=== PATIENT | female | born 1995 | race Two or more races ===

== ENCOUNTER → 2019-02-17 | Outpatient (CLI) | payer OTHER | END | disposition home or self-care (01) | LOC: PRENATAL 02-16 09:00 | DX: O44.02 Complete placenta previa NOS or without hemorrhage, second trimester (principal); O02.89 Other abnormal products of conception ==

== ENCOUNTER → 2019-03-18 | Outpatient (CLI) | payer OTHER | END | disposition home or self-care (01) | LOC: PRENATAL 09:00 | DX: O36.8921 Maternal care for other specified fetal problems, second trimester, fetus 1 (principal); O44.02 Complete placenta previa NOS or without hemorrhage, second trimester ==

== ENCOUNTER → 2019-05-25 | Outpatient (CLI) | payer OTHER | END | disposition home or self-care (01) | LOC: PRENATAL 09:00 | DX: O26.841 Uterine size-date discrepancy, first trimester (principal); O28.3 Abnormal ultrasonic finding on antenatal screening of mother; O44.03 Complete placenta previa NOS or without hemorrhage, third trimester; Z34.03 Encounter for supervision of normal first pregnancy, third trimester ==

== ENCOUNTER 2019-07-08 05:57 | Inpatient (IN) | payer OTHER ==
[~2019-07-08] VITALS: Ht 160 cm; Wt 71.2 kg
[2019-07-08] MEDS ORDERED: FOLIC ACID0.8 M1 PO (07:21)
[2019-07-08] MEDS ORDERED: OBSTETRIX DHA1 EACH PO (07:21)
== END 2019-07-10 13:07 | disposition home or self-care (01) | DRG 807 ==
LOC: OB/GYN 05:57 → LDR 05:57 → OB/GYN 23:51
PROVIDERS: ADMIT Obstetrics & Gynecology
PROC: 10E0XZZ Delivery of Products of Conception, External Approach (ICD-10-PCS; principal; 2019-07-08)
PROC: 0HQ9XZZ Repair Perineum Skin, External Approach (ICD-10-PCS; 2019-07-08)
PROC: 3E033VJ Introduction of Other Hormone into Peripheral Vein, Percutaneous Approach (ICD-10-PCS; 2019-07-08)
PROC: 10907ZC Drainage of Amniotic Fluid, Therapeutic from Products of Conception, Via Natural or Artificial Opening (ICD-10-PCS; 2019-07-08)
PROC: 4A1HXCZ Monitoring of Products of Conception, Cardiac Rate, External Approach (ICD-10-PCS; 2019-07-08)
DX: O70.0 First degree perineal laceration during delivery (principal); Z37.0 Single live birth; Z3A.39 39 weeks gestation of pregnancy

== ENCOUNTER 2022-10-10 16:57 | Emergency (ER) | payer OTHER ==
[~2022-10-10] VITALS: Ht 170.2 cm; Wt 54.9 kg
[~2022-10-10 16:57] MED LIST: FOLIC ACID0.8 M1 PO; OBSTETRIX DHA1 EACH PO
== END 2022-10-10 21:36 | disposition home or self-care (01) ==
LOC: ER 16:57
DX: K29.70 Gastritis, unspecified, without bleeding (principal)

== ENCOUNTER 2023-07-11 08:15 | Outpatient (CLI) | payer OTHER | END 2023-07-11 08:20 | disposition home or self-care (01) | LOC: SONOGRAMA 08:15 | PROVIDERS: ATTEND Pathology Anatomic Pathology & Clinical Pathology | DX: E04.1 Nontoxic single thyroid nodule (principal); D34 Benign neoplasm of thyroid gland ==

== ENCOUNTER 2023-09-15 08:55 | Emergency (ER) | payer OTHER ==
[~2023-09-15] VITALS: Ht 162.6 cm; Wt 55.3 kg
[2023-09-15] MEDS ORDERED: CEFTRIAXONE SODIUM 1,000 MG VIAL IM STA (09:21)
[2023-09-15] MEDS ORDERED: KETOROLAC TROMETHAMINE 30 MG VIAL IM STA (09:21)
== END 2023-09-15 09:35 | disposition home or self-care (01) ==
LOC: ER 08:55
DX: J32.8 Other chronic sinusitis (principal)